=== PATIENT | female | born 1970 | race Caucasian/White ===

== ENCOUNTER 2017-10-20 12:30 | Inpatient (IN) | payer OTHER, BC ==
[2017-10-20 13:38] LABS: Hemoglobin 14.8 g/dL (12.0-16.0); Mean Corpuscular HGB CONC 34.9 g/dL (32.0-36.0); Mean Corpuscular Hemoglobin 31.7 pg (27.0-31.0); Mean Corpuscular Volume 90.7 fl (81.0-99.0); Mean Platelet Volume 7.2 fL (7.4-10.4); Platelet Count 440 thou/uL (130-400); RBC Distribution Width 11.7 % (11.5-14.5); Red Blood Cell (RBC) Count 4.67 mill/uL (4.20-5.40); White Blood Cell (WBC) Count 16.7 thou/uL (4.8-10.8)
[2017-10-20 13:59] LABS: Band 29 % (5-11); Large Platelets SLIGHT; Lymphocytes 8 % (21-51); MDiff Complete? YES; Monocytes 17 % (0-10); Neutrophil 41 % (42-75); PLT Morphology Comment Appears Increased; RBC Morphology Normal; Reactive Lymphocytes 3 % (0-10)
[2017-10-20 14:04] LABS: ALT (SGPT) 33 U/L (8-55); AST (SGOT) 42 U/L (5-34); Albumin 4.5 g/dL (3.5-5.0); Alkaline Phosphatase 108 U/L (40-150); Anion Gap 14 mmol/L (10-20); BUN (Urea Nitrogen) 16 mg/dL (7.0-18.7); Bilirubin, Total 0.6 mg/dL (0.2-1.2); Calc. Creatinine Clearance 0 mL/min (70-130); Calcium 9.5 mg/dL (7.8-10.44); Carbon Dioxide 26 mmol/L (22-29); Chloride 100 mmol/L (98-107); Estimated GFR-MDRD 80; Globulin 3.1 g/dL (2.4-3.5); Glucose 101 mg/dL (70-105); Potassium 3.9 mmol/L (3.5-5.1); Protein, Total 7.6 g/dL (6.0-8.3); Sodium 136 mmol/L (136-145)
--- NOTE | 2017-10-20 14:06 | RAD ---
PORTABLE CHEST 1 VIEW: Date: 10/20/17 Time: 1351 hours HISTORY: Cough. FINDINGS: Comparison made with exam of 09/15/16. The heart size is normal. Lungs are well expanded without focal areas of consolidation, pneumothorax, alvina pulmonary edema, or pleural effusions. Surgical clips in the chest and axilla are again seen. IMPRESSION: No radiographic evidence of acute cardiopulmonary process. POS: [facility]
[2017-10-20] MEDS ORDERED: Ibuprofen 800 MG TAB ONE (14:28)
[2017-10-20] MEDS ORDERED: Piperacillin/Tazobactam 4.5 GM in Sodium Chloride 0.9% 100 ML IVPB SCH (15:15)
[2017-10-20 15:28] LABS: Bilirubin Negative (Negative); Blood, Urine Negative (Negative); Clarity CLEAR (Clear); Glucose, Urine (Dipstick) Negative (Negative); Leukocyte Negative (Negative); Nitrite Negative (Negative); Protein, Urine (Dipstick) Negative (Neg-Trace); Specific Gravity, Urine 1.014 (1.002-1.036); Urobilinogen 0.2 mg/dL (0.2-1.0)
[2017-10-20] MEDS ORDERED: Acetaminophen 500 MG TAB ONE ×2 (16:05→16:17)
[2017-10-20] MEDS ORDERED: Acetaminophen 325 MG TAB PO PRN (16:43)
[2017-10-20] MEDS ORDERED: Ondansetron ODT 4 MG TAB PO PRN (16:43)
[2017-10-20] MEDS ORDERED: cefTRIAXone\\ROCEPHIN 1 GM in Sodium Chloride 0.9% 100 ML IVPB SCH (17:00)
[2017-10-20] MEDS ORDERED: Albuterol Sulfate 2.5 mg/3 ml Neb NEB PRN (17:24)
[2017-10-20] MEDS ORDERED: Lorazepam 2 MG/ML VIAL ONE ×2 (17:54→18:31)
[2017-10-20] MEDS ORDERED: cefTRIAXone\\ROCEPHIN 1 GM, Syringe 0.4 ML in Sterile Water 9.6 ML SLOW IVP SCH (18:00)
--- NOTE | 2017-10-20 20:10 | HP-2 ---
CODE STATUS: FULL. PRIMARY CARE PHYSICIAN: Johnathan Flannery M.D. ATTENDING PHYSICIAN: Jannette Gomez M.D. RESIDENT: Alexandria Trinidad DO HISTORIAN: The patient. CHIEF COMPLAINT: Flue-like illness. HISTORY OF PRESENT ILLNESS: Patient is a 47-year-old female who presented with fever, body aches, he adache, cough, and nausea who began to feel ill yesterday morning. She went to an urgent care center who diagnosed her with the flu; however, they did not have flu swabs. They placed her on Tamiflu. The patient has significant medical history of asplenia at age 5 and is on prophylactic penicillin da [place]. At home, she had a fever of 102.5. She also reports history of septic shock due to strep and w as hospitalized in the ICU, followed by hospital-acquired pneumonia. In the ER, patient was given va ncomycin 1 gram, Zosyn 4.5 grams IV and Motrin 800mg and 1 liter normal saline. PAST MEDICAL HISTORY: 1. Left breast cancer, status post mastectomy in 2010. 2. Asthma. 3. Endometriosis. 4. History of septic shock. 5. Anxiety. 6. Depression. 7. Hereditary spherocytosis, status post splenectomy. 8. Insomnia. PAST SURGICAL HISTORY: 1. Removal of cervical tumor. 2. Oophorectomy. 3. Double mastectomy. 4. x1. 5. Sinus surgery x5. 6. Appendectomy. 7. Splenectomy. 8. Thyroidectomy. ALLERGIES: 1. DARVOCET-N 100 causing itching. 2. NAPSYLATE. 3. PROPOXYPHENE. MEDICATIONS: 1. Ambien 10 mg daily. 2. Aspirin 81 mg. 3. Duloxetine 60 mg daily. 4. Gabapentin 800 mg daily. 5. Meloxicam 15 mg daily. 6. Seroquel 1200 mg at bedtime. 7. Singulair 10 mg daily. 8. Penicillin VK 500 mg b.i.d. 9. Melatonin 20 mg at bedtime. 10. Sudafed 30 mg b.i.d. p.r.n. FAMILY HISTORY: Father with hereditary spherocytosis. SOCIAL HISTORY: Denies tobacco, alcohol, or drug use. 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 REVIEW OF SYSTEMS: Twelve point review of systems was performed and found to be positive for those m entioned in the HPI along with generalized weakness. PHYSICAL EXAMINATION: VITAL SIGNS: Blood pressure 131/88, pulse 128, respiratory rate 20, T-max 102.8, pulse ox 98% on ignacia m air, current weight 73.48 kilograms. GENERAL: The patient is alert and oriented x4, in no acute distress. She is well-developed, well-no urished, and appropriately interactive. EYES: PERRLA, EOMI. ENT: Oropharynx with erythema, no exudate. NECK: Supple, without lymphadenopathy, no thyromegaly. CARDIOVASCULAR: Tachycardia. No murmurs noted. Radial pulses 2+, pedal pulses 2+. RESPIRATORY: Normal effort, no retractions, clear to auscultation bilaterally. SKIN: Warm and dry. ABDOMEN: Soft and nontender. Bowel sounds positive in all 4 quadrants. EXTREMITIES: No clubbing, cyanosis or edema. MUSCULOSKELETAL: Structure within normal limits. Tone within normal limits. NEUROLOGIC: No focal deficits. PSYCHIATRIC: Appropriate. LABORATORY DATA: CBC: White blood cell count 16.7, hemoglobin 14.8, hematocrit 42.4, platelets 440, 29% bands, 41% neutrophils. CMP: Sodium 136, potassium 3.9, chloride 100, CO2 of 26, BUN 16, creat inine 0.77, glucose 101, GFR greater than 90, calcium 9.5, total protein 7.6, albumin 4.5, AST 42, AL T 33, alkaline phosphatase 108, total bilirubin 0.6. Chest x-ray with no acute findings. ASSESSMENT AND PLAN: 1. Fever in asplenic patient, secondary to influenza versus upper respiratory infection. We are adm itting to oncology with a history of insidious septic shock in the past secondary to strep and status post splenectomy at age 5, on daily penicillin. Blood and urine cultures are pending. We will give vancomycin and Rocephin until blood culture is negative. Patient is status post 1 liter normal sali ne. We will continue maintenance fluids. I have obtained a viral panel that is pending. White bloo d cell count 16.7 with 29% bands. We will repeat CBC in the morning and monitor white blood cell cou nt. We will continue Tamiflu 75 mg b.i.d. x5 days. Chest x-ray was negative. Lactic acid is pendin g. 2. Hereditary spherocytosis, status post splenectomy, continue penicillin VK 500 mg b.i.d. We will m onitor closely for signs of worsening infection. 3. History of breast cancer status post bilateral mastectomy in remission. 4. Anxiety and depression. We will continue home medications. 5. Insomnia. We will continue home Ambien and melatonin. 6. Status post thyroidectomy, not currently on medications. We will check a TSH. DISPOSITION AND LENGTH OF HOSPITAL STAY: 1-2 days. Symptomatic medications will be provided. History and physical exam as well as management was discussed with Dr. Reuben Hernandez.
[2017-10-20] MEDS: Oseltamivir 75 MG CAP PO SCH (21:32)
[2017-10-20] MEDS: Penicillin V Potassium 250 MG TAB PO SCH (21:33)
[2017-10-20] MEDS: Melatonin 3 MG TAB PO PRN (21:46)
[2017-10-20] MEDS: Zolpidem Tartrate 5 MG TAB PO PRN (21:47)
[2017-10-20] MEDS: cefTRIAXone\\ROCEPHIN 1 GM, Syringe 0.4 ML in Sterile Water 9.6 ML SLOW IVP SCH (21:47)
[2017-10-20] MEDS: Sodium Chloride 0.9% 1,000 ML IV SCH (23:13)
[2017-10-21] MEDS: Vancomycin HCl 1 GM in Premix Bag 1 BAG IVPB SCH ×2 (03:19→16:18)
[2017-10-21] MEDS: Sodium Chloride 0.9% 1,000 ML IV SCH ×3 (03:40→16:22)
[2017-10-21 05:22] VITALS: BMI 28.3
[2017-10-21 06:16] LABS: Band 19 % (5-11); Hemoglobin 12.6 g/dL (12.0-16.0); Lymphocytes 21 % (21-51); MDiff Complete? YES; Mean Corpuscular HGB CONC 35.2 g/dL (32.0-36.0); Mean Corpuscular Hemoglobin 32.1 pg (27.0-31.0); Mean Corpuscular Volume 91.3 fl (81.0-99.0); Mean Platelet Volume 7.5 fL (7.4-10.4); Monocytes 23 % (0-10); Neutrophil 37 % (42-75); PLT Morphology Comment Appears Adequate; Platelet Count 380 thou/uL (130-400); RBC Distribution Width 11.9 % (11.5-14.5); Red Blood Cell (RBC) Count 3.94 mill/uL (4.20-5.40); White Blood Cell (WBC) Count 9.2 thou/uL (4.8-10.8)
[2017-10-21] MEDS ORDERED: Cyclobenzaprine 10 MG TAB PO PRN (09:06)
[2017-10-21] MEDS ORDERED: guaiFENesin ER 600 MG TAB PO PRN (09:06)
[2017-10-21] MEDS ORDERED: Fioricet 325/50/40 mg Tablet PO PRN (09:06)
--- NOTE | 2017-10-21 09:11 | PDOC.FM ---
- Subjective Subjective: Patient is lying comfortably in bed this morning. Reports poor sleep overnight , but otherwise feels better. No fevers overnight and no acute events overnight. - Objective MAR Reviewed: Yes Vital Signs & Weight: Vital Signs (12 hours) Temp Pulse Resp BP Pulse Ox 10/21/17 08:45 98.5 F 113 H 18 113/77 95 10/21/17 04:00 98.6 F 100 16 104/68 95 10/21/17 00:00 98.4 F 101 H 16 101/65 94 L Weight Weight 79.56 kg I&O: 10/20/17 10/21/17 10/22/17 06:59 06:59 06:59 Intake Total 1440 Balance 1440 Result Diagrams: 10/21/17 04:37 10/20/17 13:20 <Alexandria Trinidad - Last Filed: 10/21/17 11:02> - Objective Vital Signs & Weight: Vital Signs (12 hours) Temp Pulse Resp BP Pulse Ox 10/21/17 08:45 98.5 F 113 H 18 113/77 95 10/21/17 04:00 98.6 F 100 16 104/68 95 10/21/17 00:00 98.4 F 101 H 16 101/65 94 L Weight Weight 79.56 kg I&O: 10/20/17 10/21/17 10/22/17 06:59 06:59 06:59 Intake Total 1440 Balance 1440 Result Diagrams: 10/21/17 04:37 10/20/17 13:20 <Reuben Hernandez - Last Filed: 10/21/17 11:59> Phys Exam - Physical Examination Constitutional: NAD HEENT: PERRLA, moist MMs erythematous oropharynx, no exudates Neck: no nodes Respiratory: no wheezing, no rales, no rhonchi, clear to auscultation bilateral Cardiovascular: RRR, no significant murmur Gastrointestinal: soft, non-tender Musculoskeletal: no edema, pulses present Neurological: non-focal, moves all 4 limbs Psychiatric: normal affect, A&O x 3 Skin: cap refill <2 seconds <Alexandria Trinidad - Last Filed: 10/21/17 11:02> Dx/Plan (1) Fever of unknown origin Status: Acute (2) Influenza-like illness Code(s): R69 - ILLNESS, UNSPECIFIED Status: Acute (3) Hx of breast cancer Code(s): Z85.3 - PERSONAL HISTORY OF MALIGNANT NEOPLASM OF BREAST Status: Acute (4) Hereditary spherocytosis Code(s): D58.0 - HEREDITARY SPHEROCYTOSIS Status: Acute (5) Acquired asplenia Code(s): Z90.81 - ACQUIRED ABSENCE OF SPLEEN Status: Chronic (6) Anxiety disorder Code(s): F41.9 - ANXIETY DISORDER, UNSPECIFIED Status: Chronic (7) Major depressive disorder Code(s): F32.9 - MAJOR DEPRESSIVE DISORDER, SINGLE EPISODE, UNSPECIFIED Status : Chronic - Plan Plan: Fever of Unknown Origin in Asplenic Patient - Likely viral with recent sx, blood cultures with no growth to date - continue Vanc and Rocephin until blood cultures negative - respiratory viral panel negative - d/c Tamiflu - afebrile overngiht Likely Viral URI - respiratory viral panel negative - symptomatic treatment Hereditary Spherocytosis s/p Splenectomy - treat with abx until cultures negative as above Anxiety - home meds Depression - home meds Insomnia - home meds Breast Cancer s/p mastectomy <Alexandria Trinidad - Last Filed: 10/21/17 11:02> Attending Addendum - Attending Addendum I personally evaluated the patient and discussed the management with Dr. Trinidad. I agree with the History, Examination, Assessment and Plan documented above with any addition or exceptions noted below. Feeling better. Afeb overnight. Viral Panel normal. BBS CTA. Continue IV abx' s til Cx's negative. Sx's treated for viral illness. <Reuben Hernandez - Last Filed: 10/21/17 11:59>
[2017-10-21] MEDS ORDERED: Melatonin 3 MG TAB PO PRN (09:25)
[2017-10-21] MEDS ORDERED: Lactinex Tablet PO SCH (10:00)
[2017-10-21] MEDS ORDERED: DULoxetine 60 MG CAP PO SCH (10:00)
[2017-10-21] MEDS ORDERED: Fish Oil 1,000 MG CAP PO SCH (10:00)
[2017-10-21] MEDS ORDERED: Multivit, Therapeutic 1 TAB PO SCH (10:00)
[2017-10-21] MEDS ORDERED: Aspirin 81 mg Enteric Coated Tablet PO SCH (10:00)
[2017-10-21] MEDS: Enoxaparin Sodium 40 MG/0.4 ML SYRINGE SC SCH (10:18)
[2017-10-21] MEDS: Oseltamivir 75 MG CAP PO SCH (11:52)
[2017-10-21] MEDS: Penicillin V Potassium 250 MG TAB PO SCH ×2 (12:26→20:24)
[2017-10-21] MEDS ORDERED: Naproxen 500 MG TAB PO PRN (15:00)
[2017-10-21] MEDS: Gabapentin 400 MG CAP PO SCH (20:24)
[2017-10-21] MEDS: Montelukast Sodium 10 mg Tablet PO SCH (20:33)
[2017-10-21] MEDS: Zolpidem Tartrate 5 MG TAB PO PRN (20:41)
[2017-10-21] MEDS: Melatonin 3 MG TAB PO PRN (21:00)
[2017-10-21] MEDS: Meloxicam 15 MG TAB PO SCH (21:53)
[2017-10-21] MEDS: cefTRIAXone\\ROCEPHIN 1 GM, Syringe 0.4 ML in Sterile Water 9.6 ML SLOW IVP SCH (22:00)
[2017-10-22] MEDS: cefTRIAXone\\ROCEPHIN 1 GM, Syringe 0.4 ML in Sterile Water 9.6 ML SLOW IVP SCH (01:03)
[2017-10-22 02:30] LABS: Vancomycin, Trough 8.4 ug/mL
[2017-10-22] MEDS: Sodium Chloride 0.9% 1,000 ML IV SCH ×2 (02:54→15:43)
[2017-10-22] MEDS: Vancomycin HCl 1 GM in Premix Bag 1 BAG IVPB SCH ×2 (02:55→15:41)
[2017-10-22 03:35] LABS: Eosinophils 6 % (0-10); Hemoglobin 13.8 g/dL (12.0-16.0); Lymphocytes 47 % (21-51); MDiff Complete? YES; Mean Corpuscular HGB CONC 35.2 g/dL (32.0-36.0); Mean Corpuscular Volume 90.9 fl (81.0-99.0); Mean Platelet Volume 7.7 fL (7.4-10.4); Monocytes 15 % (0-10); Neutrophil 18 % (42-75); PLT Morphology Comment Appears Adequate; Platelet Count 407 thou/uL (130-400); RBC Distribution Width 11.7 % (11.5-14.5); Reactive Lymphocytes 14 % (0-10); Red Blood Cell (RBC) Count 4.32 mill/uL (4.20-5.40); White Blood Cell (WBC) Count 5.3 thou/uL (4.8-10.8)
--- NOTE | 2017-10-22 07:53 | PDOC.FM ---
- Subjective Subjective: Patient resting comfortably this morning. Reports feeling much better today but has continued cough. No acute events overngiht. - Objective MAR Reviewed: Yes Vital Signs & Weight: Vital Signs (12 hours) Temp Pulse Resp BP BP Pulse Ox 10/22/17 00:50 99.1 F 106 H 16 94/62 92 L 10/21/17 20:00 99.3 F 100 20 113/76 96 Weight Weight 79.56 kg I&O: 10/20/17 10/21/17 10/22/17 06:59 06:59 06:59 Intake Total 1440 Balance 1440 Result Diagrams: 10/22/17 01:55 10/20/17 13:20 <Alexandria Trinidad - Last Filed: 10/22/17 08:00> - Objective Vital Signs & Weight: Vital Signs (12 hours) Temp Pulse Resp BP Pulse Ox 10/22/17 00:50 99.1 F 106 H 16 94/62 92 L Weight Weight 79.56 kg I&O: 10/21/17 10/22/17 10/23/17 06:59 06:59 06:59 Intake Total 1440 Balance 1440 Result Diagrams: 10/22/17 01:55 10/20/17 13:20 <Reuben Hernandez - Last Filed: 10/22/17 08:54> Phys Exam - Physical Examination Constitutional: NAD HEENT: PERRLA, moist MMs Neck: no nodes Respiratory: no wheezing, no rales, clear to auscultation bilateral Cardiovascular: RRR, no significant murmur Gastrointestinal: soft, non-tender Musculoskeletal: no edema, pulses present <Alexandria Trinidad - Last Filed: 10/22/17 08:00> Dx/Plan (1) Fever of unknown origin Status: Acute (2) Influenza-like illness Code(s): R69 - ILLNESS, UNSPECIFIED Status: Acute (3) Hx of breast cancer Code(s): Z85.3 - PERSONAL HISTORY OF MALIGNANT NEOPLASM OF BREAST Status: Acute (4) Hereditary spherocytosis Code(s): D58.0 - HEREDITARY SPHEROCYTOSIS Status: Acute (5) Acquired asplenia Code(s): Z90.81 - ACQUIRED ABSENCE OF SPLEEN Status: Chronic (6) Anxiety disorder Code(s): F41.9 - ANXIETY DISORDER, UNSPECIFIED Status: Chronic (7) Major depressive disorder Code(s): F32.9 - MAJOR DEPRESSIVE DISORDER, SINGLE EPISODE, UNSPECIFIED Status : Chronic - Plan Plan: Fever of Unknown Origin in Asplenic Patient - Likely viral with recent sx, blood cultures with no growth to date - continue Vanc and Rocephin until blood cultures negative, will be 48h today. - respiratory viral panel negative - d/c Tamiflu - afebrile overnight Likely Viral URI - respiratory viral panel negative - symptomatic treatment Hereditary Spherocytosis s/p Splenectomy - treat with abx until cultures negative as above Anxiety - home meds Depression - home meds Insomnia - home meds Breast Cancer s/p mastectomy Dispo: Likely d/c today if blood cultures negative. <Alexandria Trinidad - Last Filed: 10/22/17 08:00> Attending Addendum - Attending Addendum I personally evaluated the patient and discussed the management with Dr. Trinidad I agree with the History, Examination, Assessment and Plan documented above with any addition or exceptions noted below. Afebrile overnight. Final cultures pending result today. If negative, antibiotics can be stopped and patient can be discharged home with close follow up. <Reuben Hernandez - Last Filed: 10/22/17 08:54>
[2017-10-22] MEDS ORDERED: Glucosam/Chondr-Msm1/D3/C/Mang PO SCH (09:00)
[2017-10-22] MEDS ORDERED: Prevnar 13-Val Conj/PF 0.5 ML SYRINGE IM ONE (09:00)
[2017-10-22] MEDS: Fish Oil 1,000 MG CAP PO SCH (09:53)
[2017-10-22] MEDS: Aspirin 81 mg Enteric Coated Tablet PO SCH (09:54)
[2017-10-22] MEDS: Lactinex Tablet PO SCH (09:54)
[2017-10-22] MEDS: Multivit, Therapeutic 1 TAB PO SCH (09:54)
[2017-10-22] MEDS: Enoxaparin Sodium 40 MG/0.4 ML SYRINGE SC SCH ×2 (09:55→15:41)
[2017-10-22] MEDS: DULoxetine 60 MG CAP PO SCH (09:55)
[2017-10-22] MEDS: Penicillin V Potassium 250 MG TAB PO SCH ×2 (09:55→20:33)
[2017-10-22] MEDS: Meloxicam 15 MG TAB PO SCH (20:32)
[2017-10-22] MEDS: Montelukast Sodium 10 mg Tablet PO SCH (20:32)
[2017-10-22] MEDS: Gabapentin 400 MG CAP PO SCH (20:32)
[2017-10-22] MEDS: Zolpidem Tartrate 5 MG TAB PO PRN (20:34)
[2017-10-23 05:25] LABS: Band 1 % (5-11); Eosinophils 2 % (0-10); Hemoglobin 14.3 g/dL (12.0-16.0); Lymphocytes 31 % (21-51); MDiff Complete? YES; Mean Corpuscular HGB CONC 34.5 g/dL (32.0-36.0); Mean Corpuscular Hemoglobin 31.1 pg (27.0-31.0); Mean Corpuscular Volume 90.2 fl (81.0-99.0); Mean Platelet Volume 7.5 fL (7.4-10.4); Monocytes 10 % (0-10); Neutrophil 56 % (42-75); PLT Morphology Comment Appears Increased; Platelet Count 416 thou/uL (130-400); RBC Distribution Width 11.5 % (11.5-14.5); White Blood Cell (WBC) Count 10.2 thou/uL (4.8-10.8)
--- NOTE | 2017-10-23 06:49 | PDOC.FM ---
- Subjective Subjective: No acute events overnight. No fever since yesterday ~1400. Pt without complaints this am. - Objective MAR Reviewed: Yes Vital Signs & Weight: Vital Signs (12 hours) Temp Pulse Resp BP Pulse Ox 10/23/17 04:00 98.5 F 10/23/17 00:11 98.6 F 10/22/17 20:00 100.2 F H 111 H 16 132/88 98 Weight Weight 79.56 kg I&O: 10/21/17 10/22/17 10/23/17 06:59 06:59 06:59 Intake Total 1440 Balance 1440 Result Diagrams: 10/23/17 04:39 10/20/17 13:20 <Jeanette Cortez - Last Filed: 10/23/17 09:07> - Objective Vital Signs & Weight: Vital Signs (12 hours) Temp Pulse Resp BP Pulse Ox 10/23/17 08:00 98.3 F 100 20 91/65 93 L 10/23/17 04:00 98.5 F Weight Weight 79.56 kg Result Diagrams: 10/23/17 04:39 10/20/17 13:20 <Hesham Villegas - Last Filed: 10/23/17 12:44> Phys Exam - Physical Examination Constitutional: NAD HEENT: PERRLA, moist MMs Respiratory: no wheezing, no rales Cardiovascular: RRR, no significant murmur Gastrointestinal: soft, non-tender, no distention, positive bowel sounds Musculoskeletal: no edema Neurological: non-focal Psychiatric: normal affect, A&O x 3 Skin: no rash <Jeanette Cortez - Last Filed: 10/23/17 09:07> Dx/Plan (1) Fever of unknown origin Status: Acute (2) Hereditary spherocytosis Code(s): D58.0 - HEREDITARY SPHEROCYTOSIS Status: Acute (3) Acquired asplenia Code(s): Z90.81 - ACQUIRED ABSENCE OF SPLEEN Status: Chronic (4) Anxiety disorder Code(s): F41.9 - ANXIETY DISORDER, UNSPECIFIED Status: Chronic (5) Major depressive disorder Code(s): F32.9 - MAJOR DEPRESSIVE DISORDER, SINGLE EPISODE, UNSPECIFIED Status : Chronic - Plan Plan: 1.)Fever of Unknown Origin in Asplenic Patient -Fevered yesterday @ 1400 -Consider discharge this afternoon if afebrile for 24 hours -Dc abx at that time - Likely viral etiology with recent sx, blood cultures with no growth to date - respiratory viral panel negative - d/c Tamiflu 2.)Likely Viral URI - respiratory viral panel negative - symptomatic treatment 3.)Hereditary Spherocytosis s/p Splenectomy - treat with abx until cultures negative as above 4.)Anxiety - home meds 5.)Depression - home meds 6.)Insomnia - home meds 7.)Breast Cancer s/p mastectomy Dispo: Likely d/c today <Jeanette Cortez - Last Filed: 10/23/17 09:07> Attending Addendum - Attending Addendum I personally evaluated the patient and discussed the management with Dr. Sri Brown. I agree with the History, Examination, Assessment and Plan documented above with any addition or exceptions noted below. Patient reports feeling significantly better this morning. No evidence of serious bacterial infection, and blood cultures have been negative. Her viral panel was also negative, but symptoms point to most likely URTI as cause of fevers. She has been afebrile for near 24 hours. We will be sending her home on Cefdinir to cover for incapsulated organisms when she is discharged. Checking PCT to ensure low risk for bacterial sepsis, and likely discharge later this afternoon. <Hesham Villegas - Last Filed: 10/23/17 12:44>
[2017-10-23] MEDS: Multivit, Therapeutic 1 TAB PO SCH (08:49)
[2017-10-23] MEDS: Lactinex Tablet PO SCH (08:49)
[2017-10-23] MEDS: Penicillin V Potassium 250 MG TAB PO SCH (08:49)
[2017-10-23] MEDS: Aspirin 81 mg Enteric Coated Tablet PO SCH (08:49)
[2017-10-23] MEDS: DULoxetine 60 MG CAP PO SCH (08:49)
[2017-10-23] MEDS: Fish Oil 1,000 MG CAP PO SCH (08:49)
[2017-10-23] MEDS: Enoxaparin Sodium 40 MG/0.4 ML SYRINGE SC SCH (08:50)
[2017-10-23 14:47] VITALS: BP 113/77; TEMP 98.9
[2017-10-23] MEDS ORDERED: Cefdinir 300 MG CAP PO SCH (21:00)
== END 2017-10-23 15:38 | disposition home or self-care (01) | DRG 872 ==
LOC: ERS 12:30 → T4-B 15:05
PROVIDERS: ADMIT Family Medicine; ATTEND Family Medicine
DX: A41.9 Sepsis, unspecified organism (principal); D58.0 Hereditary spherocytosis; N39.0 Urinary tract infection, site not specified; J11.1 Influenza due to unidentified influenza virus with other respiratory manifestations; Z85.3 Personal history of malignant neoplasm of breast; J45.909 Unspecified asthma, uncomplicated; N80.9 Endometriosis, unspecified; F41.8 Other specified anxiety disorders; Z90.81 Acquired absence of spleen; E89.0 Postprocedural hypothyroidism
CPT/HCPCS: 36415; 71045; 80053; 80202; 81003; 83605; 84145; 84443; 85007; 85025; 85027; 87040; 87077; 87086; 87186; 87633; 93005; 94760; 96361; 96365; 96366; 96375; 96376; A4216; J0696; J1650; J2060; J2543; J3370; J7050

== ENCOUNTER 2018-10-28 12:14 | Inpatient (IN) | payer OTHER, BC ==
[2018-10-28] MEDS ORDERED: cefTRIAXone\\ROCEPHIN 2 GM VIAL ONE ×2 (12:53)
[2018-10-28] MEDS ORDERED: Azithromycin 500 MG VIAL ONE (12:53)
[2018-10-28 12:54] LABS: #Basophils 0.1 thou/uL (0.0-0.2); #Eosinphils 0.1 thou/uL (0.0-0.7); #Lymphocytes 2.3 thou/uL (1.20-3.40); #Neutrophils 10.6 thou/uL (1.40-6.50); %Basophils 0.5 % (0.0-1.0); %Eosinophils 0.4 % (0.0-10.0); %Lymphocytes 15.2 % (21.0-51.0); %Monocytes 13.5 % (0.0-10.0); %Neutrophils 70.4 % (42.0-75.0); Hemoglobin 14.3 g/dL (12.0-16.0); Mean Corpuscular HGB CONC 34.6 g/dL (32.0-36.0); Mean Corpuscular Hemoglobin 30.6 pg (27.0-31.0); Mean Corpuscular Volume 88.3 fL (78.0-98.0); Mean Platelet Volume 7.4 fL (7.4-10.4); Platelet Count 438 thou/uL (130-400); RBC Distribution Width 11.9 % (11.5-14.5); Red Blood Cell (RBC) Count 4.68 mill/uL (4.20-5.40)
[2018-10-28 13:14] LABS: ALT (SGPT) 28 U/L (8-55); AST (SGOT) 35 U/L (5-34); Albumin 4.4 g/dL (3.5-5.0); Alkaline Phosphatase 130 U/L (40-150); Anion Gap 16 mmol/L (10-20); BUN (Urea Nitrogen) 24 mg/dL (7.0-18.7); Bilirubin, Total 0.3 mg/dL (0.2-1.2); Calc. Creatinine Clearance 0 mL/min (70-130); Calcium 9.5 mg/dL (7.8-10.44); Carbon Dioxide 21 mmol/L (22-29); Chloride 103 mmol/L (98-107); Estimated GFR-MDRD 76; Globulin 3.2 g/dL (2.4-3.5); Glucose 108 mg/dL (70-105); Potassium 4.2 mmol/L (3.5-5.1); Protein, Total 7.6 g/dL (6.0-8.3); Sodium 136 mmol/L (136-145)
--- NOTE | 2018-10-28 13:40 | RAD ---
FRONTAL VIEW CHEST: Date: 10/28/18 COMPARISON: 10/20/17. FINDINGS: Lungs are clear. Cardiac silhouette is prominent, stable. Numerous metallic clips overlie the chest b ilaterally. Chest otherwise similar in appearance. IMPRESSION: Stable chest. POS: [facility]
--- NOTE | 2018-10-28 13:49 | PDOC.FPRHP ---
- History of Present Illness Chief Complaint: fever History of Present Illness: 48 yo F with hx of splenectomy at age 5 for hereditary spherocytosis presents to ED for cough and fever. Fever started 3 days ago with associated cough, non productive. Yesterday, went to ED in [place] and but was sent home since WBC of 7. This AM had measured home temp of 101F and came to ED. She denies recent travel, night sweats, chills. 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 Denies dysuria, sore throat, rash, neck stiffness, headaches. Of note, she was hospitalized last year for sepsis 2/2 strep pharyngitis requiring ICU admission. Since then she has been on daily PCN ppx. - Allergies/Adverse Reactions Allergies Allergy/AdvReac Type Severity Reaction Status Date / Time propoxyphene napsylate Allergy Mild Rash Verified 06/20/15 21:49 [From [facility]] - Home Medications Medication Instructions Recorded Confirmed Type DULoxetine [Cymbalta] 60 mg PO DAILY 12/22/14 10/28/18 History Gabapentin 800 mg PO DAILY 12/22/14 10/28/18 History Meloxicam 15 mg PO DAILY 12/22/14 10/28/18 History Montelukast Sodium [Singulair] 10 mg PO HS 12/22/14 10/28/18 History Zolpidem Tartrate [Ambien] 10 mg PO HS 12/22/14 10/28/18 History Aspirin [Low Dose Aspirin EC] 1 tab PO DAILY 06/20/15 10/28/18 History Lactobacillus Acidophilus 1 capsule PO QAM 06/20/15 10/28/18 History [Probiotic] Multivitamin [Multivitamins] 1 cap PO QAM-WM 06/20/15 10/28/18 History Naproxen Sodium [Aleve] 660 mg PO BID PRN 06/20/15 10/28/18 History [place]-3 Fatty Acids/Fish Oil 1 cap PO QAM-WM 06/20/15 10/28/18 History [[place] 3 Fish Oil Softgel] Butalbital/Acetaminophen/Caffe 1 - 2 tab PO Q6HR PRN #0 tab 06/26/15 10/28/18 Rx [Fioricet] Cyclobenzaprine [Flexeril] 10 mg PO TID PRN #0 tab 06/26/15 10/28/18 Rx Glucosam/Chondr-Msm1/D3/C/[place] 1 each PO DAILY 07/19/15 10/28/18 History [Glucosamine Chondroitin Complex] Melatonin 20 mg PO HS 07/19/15 10/28/18 History guaiFENesin ER [Mucinex] 1,200 mg PO BID PRN 07/19/15 10/28/18 History Penicillin V Potassium 1 tab PO BID 09/16/16 10/28/18 History QUEtiapine Fumarate [SEROquel] 1,200 mg PO HS 09/16/16 10/28/18 History busPIRone HCl [Buspirone HCl] 15 mg PO QID PRN 10/28/18 10/28/18 History - History PMHx: Hereditary spherocytosis, breast cancer s/p mastectomy PSHx: Splenectomy, b/l mastectomy, lap appy, lap corey, b/l oophorectomy. thyroidectomy, sinus surgeries FHx:non contributory Social: denies tobacco, social drinking, denies drug use - Review of Systems General: reports: fever/chills, weight/appetite/sleep changes Eyes: denies: eye pain, vision changes ENT: denies: nasal congestion, rhinorrhea Respiratory: reports: cough, congestion. denies: shortness of breath, exercise intolerance Cardiovascular: denies: chest pain, palpitation, edema, orthopnea Gastrointestinal: denies: nausea, vomiting, diarrhea, constipation, abdominal pain, GI bleeding Genitourinary: denies: incontinence, dysuria, polyuria Skin: denies: rashes Musculoskeletal: denies: pain, tenderness Neurological: reports: syncope, weakness. denies: numbness Psychological: denies: anxiety, depression - Vital signs BP: [] HR: [] RR: [] Tmax: [] Pox: []% on [] Wt: [] - Physical Exam Constitutional: NAD, awake, alert and oriented HEENT: normocephalic and atraumatic, PERRLA, EOMI, conjunctiva clear, grossly normal vision, normal nasal mucosa, MMM Neck: supple, FROM, no LAD, no JVD Chest: no-tender to palpation, no lesions Heart: RRR, normal S1/S2 Lungs: CTAB, no respiratory distress, good air movement Abdomen: soft, non-tender -Abdomen: mildly distended, no peritoneal signs Musculoskeletal: normal structure, normal tone, ROM grossly normal Neurological: no focal deficit, CN II-XII intact, normal sensation Skin: no rash/lesions, good turgor Heme/Lymphatic: no unusual bruising or bleeding FMR H&P: Results - Labs Result Diagrams: 10/28/18 12:29 10/28/18 12:29 Lab results: WBC 15.0 thou/uL (4.8-10.8) H 10/28/18 12:29 Hgb 14.3 g/dL (12.0-16.0) 10/28/18 12:29 Hct 41.3 % (36.0-47.0) 10/28/18 12:29 MCV 88.3 fL (78.0-98.0) 10/28/18 12:29 Plt Count 438 thou/uL (130-400) H 10/28/18 12:29 Neutrophils % 70.4 % (42.0-75.0) 10/28/18 12:29 Sodium 136 mmol/L (136-145) 10/28/18 12:29 Potassium 4.2 mmol/L (3.5-5.1) 10/28/18 12:29 Chloride 103 mmol/L (98-107) 10/28/18 12:29 Carbon Dioxide 21 mmol/L (22-29) L 10/28/18 12:29 BUN 24 mg/dL (7.0-18.7) H 10/28/18 12:29 Creatinine 0.80 mg/dL (0.6-1.1) 10/28/18 12:29 Glucose 108 mg/dL (70-105) H 10/28/18 12:29 Lactic Acid 1.1 mmol/L (0.5-2.2) 10/28/18 12:29 Calcium 9.5 mg/dL (7.8-10.44) 10/28/18 12:29 Total Bilirubin 0.3 mg/dL (0.2-1.2) 10/28/18 12:29 AST 35 U/L (5-34) H 10/28/18 12:29 ALT 28 U/L (8-55) 10/28/18 12:29 Alkaline Phosphatase 130 U/L (40-150) 10/28/18 12:29 Serum Total Protein 7.6 g/dL (6.0-8.3) 10/28/18 12:29 Albumin 4.4 g/dL (3.5-5.0) 10/28/18 12:29 - Radiology Interpretation Chest x-ray Status: report reviewed by me Additional comment: negative for acute processes FMR H&P: A/P - Problem List (1) Fever of unknown origin Current Visit: No Status: Acute (2) Hx of breast cancer Current Visit: No Status: Acute Code(s): Z85.3 - PERSONAL HISTORY OF MALIGNANT NEOPLASM OF BREAST (3) Acquired asplenia Current Visit: No Status: Chronic Code(s): Z90.81 - ACQUIRED ABSENCE OF SPLEEN - Plan 48 yo F with acquired splenectomy 2/2 hereditary spherocytosis admitted for sepsis 2/2 likely viral URI Sepsis 2/2 likely viral URI -flu negative, CXR negative -low concern for meningitis -Meets SIRS criteria with tachycardia fever of 100.4 and WBC 15 with URI sxs -s/p rocephin & azithromycin in ED. Will start Vanc and rocephin to cover for encapsulated organisms. Will likely need at least 72 hours of abx therapy, can deescalate as sensitivities return -Pending blood and urine culture, GAS swab -Duonebs PRN, tylenol PRN, mucinex -admit medical/inpt Hx of acquired asplenia due to hereditary spherocytosis -Has received all of required vaccinations dvt ppx: SCD gi ppx: none dispo: >[address] Wahl FMR H&P: Upper Level - Pertinent history 48 yo F with PMH of splenectomy 2/2 hereditary spherocytosis presenting with fever and cough over the last 3 days. Pt has been on prophylactic PCN BID but presented to ER when symptoms did not improve. Pt has a hx of multiple hospitalizations due to sepsis concerns. In ER, pt received 2L NS, Ceftriaxone 2g, and Azithromycin 500mg. - Pertinent findings Initial HR 122, Tmax 100.6, otherwise VSS Gen: pleasant in NAD CV: RRR, no murmurs Resp: unlabored, CTAB Abd: soft, BS+, NTTP - Plan Date/Time: 10/28/18 1349 I, Kevin Valdez MD PGY3, have evaluated this patient and agree with findings/ plan as outlined by marketing intern resident. Pertinent changes/additions are listed here. 1. Sepsis likely 2/2 viral URI in setting of asplenia -Pt presents with fever, tachycardia, leukocytosis and complaints of viral URI symptoms. CXR shows no acute abnormalities. -Pt has a history of splenectomy due to hereditary spherocytosis and is therefore immunosuppressed. -Pt was started on Rocephin and Azithromycin in ER due to concerns for CAP. -Will obtain procalcitonin. -In order to better cover encapsulated organisms and possible resistance of Strep pneumo to beta lactams, will transition pt to Rocephin and Vancomycin. Continue mIVF. -Blood cultures obtained in ER. Will also add urine culture. Due to viral URI complaints, will obtain viral respiratory panel. -Low suspicion for meningitis at this time. -Can likely deescalate abx therapy as cultures result. 2. Splenectomy 2/2 hereditary spherocytosis -See above. FULL code PPx: SCDs for VTE, no GI indicated. disposition: Admit to inpatient medical floor for anticipated length of stay greater than two midnights, pending clinical course. Addendum - Attending - Attending Attestation Date/Time: 10/29/18 [id number] I personally evaluated the patient and discussed the management with Dr. Sierra I agree with the History, Examination, Assessment and Plan documented above with any addition or exceptions noted below.
[2018-10-28] MEDS ORDERED: Lorazepam 2 MG/ML VIAL ONE (14:26)
[2018-10-28] MEDS ORDERED: Vancomycin HCl 1.75 GM in Sodium Chloride 0.9% 500 ML IVPB SCH (16:00)
[2018-10-28 16:24] VITALS: BMI 27.4
[2018-10-28 16:45] LABS: Strep pneumo Urine Ag NEGATIVE (NEGATIVE)
[2018-10-28] MEDS: Guaifenesin DM 100-10/5 ML UDCUP PO PRN ×2 (16:59→21:36)
[2018-10-28] MEDS ORDERED: Vancomycin HCl 1 GM in Premix Bag 1 BAG IVPB SCH (17:00)
[2018-10-28] MEDS ORDERED: Cyclobenzaprine 10 MG TAB PO PRN (17:13)
[2018-10-28] MEDS ORDERED: busPIRone HCl 10 MG TAB PO PRN (17:13)
[2018-10-28] MEDS: Lactated Ringer's 1,000 ML IV SCH (20:16)
[2018-10-28] MEDS: Montelukast Sodium 10 mg Tablet PO SCH (20:17)
[2018-10-28] MEDS: Acetaminophen 500 MG TAB PO PRN (20:17)
[2018-10-28] MEDS: Benzonatate 100 MG CAP PO PRN (20:17)
[2018-10-28] MEDS ORDERED: MELATONIN 20 MG PO SCH (21:00)
[2018-10-28] MEDS: Zolpidem Tartrate 5 MG TAB PO SCH (21:24)
[2018-10-28] MEDS: Melatonin 3 MG TAB PO SCH (21:40)
[2018-10-29] MEDS: Benzonatate 100 MG CAP PO PRN ×4 (03:30→20:13)
[2018-10-29] MEDS: Guaifenesin DM 100-10/5 ML UDCUP PO PRN ×4 (03:30→20:07)
[2018-10-29] MEDS: Vancomycin HCl 1 GM in Premix Bag 1 BAG IVPB SCH ×2 (03:30→15:40)
[2018-10-29] MEDS: Lactated Ringer's 1,000 ML IV SCH (03:31)
--- NOTE | 2018-10-29 06:10 | PDOC.FM ---
- Subjective Subjective: Patient complains of coughing this AM. Otherwise, eating and drinking, voiding and stooling normally. - Objective Vital Signs & Weight: Vital Signs (12 hours) Temp Pulse Resp BP Pulse Ox 10/29/18 04:00 97.6 F 95 18 94/63 96 10/29/18 00:00 98.2 F 92 16 105/71 92 L 10/28/18 20:01 99.2 F 103 H 18 116/74 92 L 10/28/18 19:51 95 10/28/18 18:59 93 L Weight Weight 77.167 kg I&O: 10/27/18 10/28/18 10/29/18 06:59 06:59 06:59 Intake Total 1989 Balance 1989 Result Diagrams: 10/29/18 05:59 10/29/18 05:59 Phys Exam - Physical Examination Coughing on exam Respiratory: no wheezing, clear to auscultation bilateral Cardiovascular: RRR, no significant murmur Gastrointestinal: soft, non-tender, no distention, positive bowel sounds Musculoskeletal: no edema, pulses present Psychiatric: normal affect, A&O x 3 Skin: no rash, normal turgor, cap refill <2 seconds Dx/Plan (1) Sepsis, viral Code(s): A41.89 - OTHER SPECIFIED SEPSIS; B97.89 - OTH VIRAL AGENTS THE CAUSE OF DISEASES CLASSD ELSWHR Status: Acute (2) Hereditary spherocytosis Code(s): D58.0 - HEREDITARY SPHEROCYTOSIS Status: Chronic - Plan Plan: 48 yo F with 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 Continued Vanc and rocephin to cover for encapsulated organisms. 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 Ross. I agree with the History, Examination, Assessment and Plan documented above with any addition or exceptions noted below. Patient doing well. PCT reassuring. She is here for IV abx until negative cultures result. Seems her symptoms are related to URI. Flu swab pending. Continue symptomatic treatment and await cx results.
[2018-10-29 06:26] LABS: Anion Gap 12 mmol/L (10-20); BUN (Urea Nitrogen) 14 mg/dL (7.0-18.7); Calc. Creatinine Clearance 120 mL/min (70-130); Calcium 9.2 mg/dL (7.8-10.44); Carbon Dioxide 23 mmol/L (22-29); Chloride 110 mmol/L (98-107); Estimated GFR-MDRD 90; Glucose 100 mg/dL (70-105); Potassium 3.6 mmol/L (3.5-5.1); Sodium 141 mmol/L (136-145)
[2018-10-29 06:30] LABS: Band 2 % (5-11); Eosinophils 6 % (0-10); Hemoglobin 12.7 g/dL (12.0-16.0); Lymphocytes 40 % (21-51); MDiff Complete? YES; Mean Corpuscular HGB CONC 34.5 g/dL (32.0-36.0); Mean Corpuscular Hemoglobin 30.8 pg (27.0-31.0); Mean Corpuscular Volume 89.3 fL (78.0-98.0); Mean Platelet Volume 7.1 fL (7.4-10.4); Monocytes 23 % (0-10); Neutrophil 23 % (42-75); Platelet Count 388 thou/uL (130-400); RBC Distribution Width 11.8 % (11.5-14.5); Reactive Lymphocytes 6 % (0-10); Red Blood Cell (RBC) Count 4.13 mill/uL (4.20-5.40); White Blood Cell (WBC) Count 5.5 thou/uL (4.8-10.8)
[2018-10-29] MEDS: Fish Oil 1,000 MG CAP PO SCH (08:58)
[2018-10-29] MEDS: Meloxicam 15 MG TAB PO SCH (08:58)
[2018-10-29] MEDS: DULoxetine 60 MG CAP PO SCH (08:58)
[2018-10-29] MEDS: Lactinex Tablet PO SCH (08:59)
[2018-10-29] MEDS: Aspirin 81 mg Enteric Coated Tablet PO SCH (08:59)
[2018-10-29] MEDS: Multivit, Therapeutic 1 TAB PO SCH (08:59)
[2018-10-29] MEDS ORDERED: Gabapentin 400 MG CAP PO SCH (09:00)
[2018-10-29] MEDS: cefTRIAXone\\ROCEPHIN 1 GM in Sodium Chloride 0.9% 100 ML IVPB SCH (12:26)
[2018-10-29] MEDS: Acetaminophen 500 MG TAB PO PRN (20:06)
[2018-10-29] MEDS: Zolpidem Tartrate 5 MG TAB PO SCH (20:07)
[2018-10-29] MEDS: Montelukast Sodium 10 mg Tablet PO SCH (20:07)
[2018-10-29] MEDS: Melatonin 3 MG TAB PO SCH (20:07)
[2018-10-29] MEDS: Gabapentin 400 MG CAP PO SCH (20:08)
[2018-10-30] MEDS: Vancomycin HCl 1 GM in Premix Bag 1 BAG IVPB SCH (05:17)
[2018-10-30] MEDS: Vancomycin HCl 1.25 GM in Sodium Chloride 0.9% 250 ML 250 ML IVPB SCH ×2 (05:42→18:29)
[2018-10-30] MEDS: Guaifenesin DM 100-10/5 ML UDCUP PO PRN (05:43)
[2018-10-30] MEDS: Benzonatate 100 MG CAP PO PRN ×2 (05:43→20:44)
--- NOTE | 2018-10-30 06:22 | PDOC.FM ---
Addendum entered and electronically signed by Olive Ross MD 10/30/18 08:02: Addendum to A/P: Sepsis 2/2 Metapneumovirus URI Original Note: - Subjective Subjective: Patient continues to cough this morning. Discussed respiratory viral panel results. Patient is asking if she can go home today. - Objective Vital Signs & Weight: Vital Signs (12 hours) Temp Pulse Resp BP Pulse Ox 10/30/18 05:07 98 10/30/18 04:00 98.5 F 10/29/18 19:30 98 10/29/18 19:21 99.5 F 100 18 122/68 98 Weight Weight 77.167 kg I&O: 10/28/18 10/29/18 10/30/18 06:59 06:59 06:59 Intake Total 1989 2920 Balance 1989 2920 Result Diagrams: 10/29/18 05:59 10/29/18 05:59 Phys Exam - Physical Examination Constitutional: NAD HEENT: moist MMs Respiratory: no wheezing, no rales, no rhonchi, clear to auscultation bilateral Cardiovascular: RRR, no significant murmur, no rub Gastrointestinal: soft, non-tender, no distention, positive bowel sounds Musculoskeletal: no edema, pulses present Neurological: non-focal, moves all 4 limbs Psychiatric: normal affect, A&O x 3 Skin: no rash, normal turgor Dx/Plan (1) Sepsis, viral Code(s): A41.89 - OTHER SPECIFIED SEPSIS; B97.89 - OTH VIRAL AGENTS THE CAUSE OF DISEASES CLASSD ELSWHR Status: Acute (2) Hereditary spherocytosis Code(s): D58.0 - HEREDITARY SPHEROCYTOSIS Status: Chronic - Plan Plan: 48 yo F with 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 Continued Vanc and rocephin to cover for encapsulated organisms. 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 Ross. I agree with the History, Examination, Assessment and Plan documented above with any addition or exceptions noted below. Patient doing very well. WBC stable, cultures negative to date, and PCT reassuring. Her viral cx came back with metapneumovirus, the likely cause of her symptoms and fever. Will continue abx and await final cultures per recommendations for fever/asplenia patients. Likely d/c tomorrow.
[2018-10-30] MEDS: DULoxetine 60 MG CAP PO SCH (08:16)
[2018-10-30] MEDS: Lactinex Tablet PO SCH (08:17)
[2018-10-30] MEDS: Multivit, Therapeutic 1 TAB PO SCH (08:17)
[2018-10-30] MEDS: Aspirin 81 mg Enteric Coated Tablet PO SCH (08:17)
[2018-10-30] MEDS: Fish Oil 1,000 MG CAP PO SCH (08:17)
[2018-10-30] MEDS: Meloxicam 15 MG TAB PO SCH (08:17)
[2018-10-30] MEDS: cefTRIAXone\\ROCEPHIN 1 GM in Sodium Chloride 0.9% 100 ML IVPB SCH (14:03)
[2018-10-30] MEDS: Zolpidem Tartrate 5 MG TAB PO SCH (20:37)
[2018-10-30] MEDS: Montelukast Sodium 10 mg Tablet PO SCH (20:38)
[2018-10-30] MEDS: Gabapentin 400 MG CAP PO SCH (20:38)
[2018-10-30] MEDS: Melatonin 3 MG TAB PO SCH (20:39)
[2018-10-31 04:37] VITALS: TEMP 98.6
--- NOTE | 2018-10-31 05:45 | PDOC.FM ---
- Subjective Subjective: Patient feeling well this AM, other than she had difficulty resting. - Objective Vital Signs & Weight: Vital Signs (12 hours) Temp Pulse Resp BP Pulse Ox 10/31/18 04:00 98.6 F 88 20 102/70 93 L 10/31/18 00:32 97.7 F 93 20 102/71 94 L 10/30/18 20:00 94 L 10/30/18 19:03 98.6 F 88 20 125/85 96 Weight Weight 77.167 kg I&O: 10/29/18 10/30/18 10/31/18 06:59 06:59 06:59 Intake Total 1989 2920 1720 Balance 1989 2920 1720 Result Diagrams: 10/29/18 05:59 10/29/18 05:59 Phys Exam - Physical Examination Constitutional: NAD Respiratory: no wheezing, clear to auscultation bilateral Cardiovascular: RRR, no significant murmur Gastrointestinal: soft, non-tender, no distention, positive bowel sounds Musculoskeletal: no edema, pulses present Psychiatric: normal affect Skin: no rash, normal turgor Dx/Plan (1) Sepsis, viral Code(s): A41.89 - OTHER SPECIFIED SEPSIS; B97.89 - OTH VIRAL AGENTS THE CAUSE OF DISEASES CLASSD ELSWHR Status: Acute (2) Hereditary spherocytosis Code(s): D58.0 - HEREDITARY SPHEROCYTOSIS Status: Chronic - Plan Plan: 48 yo F with 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 Continued Vanc and rocephin to cover for encapsulated organisms. 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 Addendum - Attending - Attending Attestation Date/Time: 10/31/18 0529 I personally evaluated the patient and discussed the management with Dr. Ross. I agree with the History, Examination, Assessment and Plan documented above with any addition or exceptions noted below. Patient has been afebrile since admission and cultures negative. She will be discharged home today. Suspect fever episode due to URI 2/2 human metapneumovirus. Labs reassuring that no serious bacterial infection is present.
[2018-10-31] MEDS: Vancomycin HCl 1.25 GM in Sodium Chloride 0.9% 250 ML 250 ML IVPB SCH (05:51)
[2018-10-31] MEDS: Meloxicam 15 MG TAB PO SCH (08:31)
[2018-10-31] MEDS: Aspirin 81 mg Enteric Coated Tablet PO SCH (08:31)
[2018-10-31] MEDS: Multivit, Therapeutic 1 TAB PO SCH (08:31)
[2018-10-31] MEDS: DULoxetine 60 MG CAP PO SCH (08:31)
[2018-10-31] MEDS: Fish Oil 1,000 MG CAP PO SCH (08:31)
[2018-10-31] MEDS: Guaifenesin DM 100-10/5 ML UDCUP PO PRN (08:32)
[2018-10-31] MEDS: Lactinex Tablet PO SCH (08:32)
[2018-10-31 12:01] VITALS: BP 112/78
== END 2018-10-31 12:37 | disposition home or self-care (01) | DRG 872 ==
LOC: ERS 12:14 → T4-A 14:39
PROVIDERS: ADMIT Family Medicine; ATTEND Family Medicine
DX: A41.89 Other specified sepsis (principal); B97.89 Other viral agents as the cause of diseases classified elsewhere; J06.9 Acute upper respiratory infection, unspecified; D58.0 Hereditary spherocytosis; J45.909 Unspecified asthma, uncomplicated; Z88.8 Allergy status to other drugs, medicaments and biological substances; Z79.82 Long term (current) use of aspirin; Z85.3 Personal history of malignant neoplasm of breast; Z90.10 Acquired absence of unspecified breast and nipple; Z90.81 Acquired absence of spleen; Z90.721 Acquired absence of ovaries, unilateral
CPT/HCPCS: 36415; 71045; 80048; 80053; 80202; 83605; 84145; 85007; 85025; 85027; 87040; 87081; 87086; 87430; 87633; 87899; 96365; 96367; 96375; J0456; J0696; J2060; J3370; J7050

== ENCOUNTER 2021-06-22 14:45 | Inpatient (IN) | payer BC ==
[2021-06-22 15:46] LABS: Hemoglobin 14.4 g/dL (12.0-16.0); Mean Corpuscular HGB CONC 35.8 g/dL (32.0-36.0); Mean Corpuscular Hemoglobin 32.2 pg (27.0-31.0); Mean Corpuscular Volume 89.9 fL (78.0-98.0); Mean Platelet Volume 7.2 fL (7.4-10.4); Platelet Count 485 thou/uL (130-400); Red Blood Cell (RBC) Count 4.47 mill/uL (4.20-5.40); White Blood Cell (WBC) Count 23.6 thou/uL (4.8-10.8)
[2021-06-22] MEDS ORDERED: Acetaminophen 500 MG TAB ONE (15:58)
[2021-06-22 16:05] LABS: Band 34 % (5-11); Eosinophils 1 % (0-10); Lymphocytes 14 % (21-51); MDiff Complete? YES; Monocytes 18 % (0-10); Neutrophil 24 % (42-75); Platelet Morphology Comment Appears Increased; RBC Morphology Normal; Reactive Lymphocytes 9 % (0-10)
[2021-06-22] MEDS ORDERED: Iopamidol-370 76% 500 ML 1 ML ONE (16:10)
[2021-06-22 16:15] LABS: ALT (SGPT) 78 U/L (8-55); AST (SGOT) 89 U/L (5-34); Albumin 4.1 g/dL (3.5-5.0); Alkaline Phosphatase 82 U/L (40-110); Anion Gap 13 mmol/L (10-20); BUN (Urea Nitrogen) 14 mg/dL (9.8-20.1); Bilirubin, Total 0.6 mg/dL (0.2-1.2); Calc. Creatinine Clearance 0 mL/min (70-130); Calcium 9.7 mg/dL (7.8-10.44); Carbon Dioxide 26 mmol/L (22-29); Chloride 104 mmol/L (98-107); Globulin 2.9 g/dL (2.4-3.5); Glucose 102 mg/dL (70-105); Potassium 4.1 mmol/L (3.5-5.1); Sodium 139 mmol/L (136-145)
[2021-06-22] MEDS ORDERED: cefTRIAXone\\ROCEPHIN 2 GM VIAL ONE (16:19)
[2021-06-22] MEDS ORDERED: Azithromycin 500 MG VIAL ONE (16:19)
[2021-06-22] MEDS ORDERED: Calcium Carbonate 500 MG ChewTAB PO PRN (18:44)
[2021-06-22] MEDS ORDERED: busPIRone HCl 10 MG TAB PO PRN (19:14)
[2021-06-22 19:42] LABS: HBCM Index 0.04 S/CO (0-0.79); Hep A IgM AB Non-Reactive (NonReactive); Hep A IgM S/CO 0.08 S/CO (0-0.79); Hep B Surf Ag Non-Reactive S/CO (NonReactive); Hep C IgG Ab Non-Reactive (NonReactive); Hep C Index 0.14 S/CO (0-0.79); Hepatitis B Core IgM Abs Non-Reactive (NonReactive)
[2021-06-22] MEDS ORDERED: Lorazepam 2 MG/ML VIAL ONE (20:00)
[2021-06-22] MEDS ORDERED: Zolpidem Tartrate 5 MG TAB PO SCH (22:30)
[2021-06-22 22:31] VITALS: BMI 30.8
[2021-06-22] MEDS: Zolpidem Tartrate 5 MG TAB PO SCH (22:40)
[2021-06-22] MEDS: Montelukast Sodium 10 mg Tablet PO SCH (22:41)
[2021-06-22] MEDS: Acetaminophen 325 MG TAB PO PRN (22:41)
[2021-06-22] MEDS: Cefepime 2 GM in Sodium Chloride 0.9% 100 ML IVPB SCH (22:41)
[2021-06-22] MEDS: Lactated Ringer's 1,000 ML IV SCH (22:52)
[2021-06-22] MEDS ORDERED: Lorazepam 0.5 MG TAB PO SCH (23:00)
[2021-06-22] MEDS ORDERED: Meloxicam 15 MG TAB PO SCH (23:00)
[2021-06-22] MEDS ORDERED: Gabapentin 400 MG CAP PO SCH (23:15)
[2021-06-22] MEDS: Cyclobenzaprine 10 MG TAB PO PRN (23:33)
[2021-06-22] MEDS ORDERED: Prevnar 13-Val Conj/PF 0.5 ML SYRINGE IM ONE (23:45)
[2021-06-22] MEDS ORDERED: FLU VACC QS2021-22(6MOS UP)/PF 60 MCG/0.5 ML SYRINGE IM ONE (23:45)
[2021-06-23] MEDS: Vancomycin HCl 1.25 GM in Sodium Chloride 0.9% 250 ML 250 ML IVPB SCH ×3 (00:06→23:48)
[2021-06-23] MEDS ORDERED: guaiFENesin/DM ER PO SCH (02:15)
[2021-06-23 05:17] LABS: #Basophils 0.1 thou/uL (0.0-0.2); #Eosinphils 0.5 thou/uL (0.0-0.7); #Lymphocytes 3.3 thou/uL (1.20-3.40); #Monocytes 1.8 thou/uL (0.11-0.59); #Neutrophils 8.2 thou/uL (1.40-6.50); %Basophils 0.8 % (0.0-1.0); %Eosinophils 3.5 % (0.0-10.0); %Monocytes 12.9 % (0.0-10.0); %Neutrophils 58.7 % (42.0-75.0); Hemoglobin 12.5 g/dL (12.0-16.0); Mean Corpuscular HGB CONC 34.6 g/dL (32.0-36.0); Mean Corpuscular Hemoglobin 31.3 pg (27.0-31.0); Mean Corpuscular Volume 90.4 fL (78.0-98.0); Mean Platelet Volume 7.3 fL (7.4-10.4); Platelet Count 437 thou/uL (130-400); RBC Distribution Width 12.2 % (11.5-14.5); White Blood Cell (WBC) Count 13.9 thou/uL (4.8-10.8)
[2021-06-23 05:24] LABS: ALT (SGPT) 64 U/L (8-55); AST (SGOT) 65 U/L (5-34); Albumin 3.4 g/dL (3.5-5.0); Alkaline Phosphatase 69 U/L (40-110); Anion Gap 11 mmol/L (10-20); BUN (Urea Nitrogen) 15 mg/dL (9.8-20.1); Bilirubin, Total 0.5 mg/dL (0.2-1.2); Calc. Creatinine Clearance 127 mL/min (70-130); Calcium 8.5 mg/dL (7.8-10.44); Carbon Dioxide 22 mmol/L (22-29); Chloride 110 mmol/L (98-107); Globulin 2.2 g/dL (2.4-3.5); Glucose 102 mg/dL (70-105); Potassium 3.6 mmol/L (3.5-5.1); Protein, Total 5.6 g/dL (6.0-8.3); Sodium 139 mmol/L (136-145)
[2021-06-23] MEDS: Cefepime 2 GM in Sodium Chloride 0.9% 100 ML IVPB SCH ×3 (06:20→20:48)
[2021-06-23] MEDS: Lactated Ringer's 1,000 ML IV SCH ×2 (06:21→17:07)
[2021-06-23] MEDS ORDERED: Non-Formulary Item 1 EACH (Divalproex [Depakote] 125 MG Tab) PO SCH (09:00)
[2021-06-23] MEDS: Divalproex Sodium 125 mg Sprinkle Capsule PO SCH (10:24)
[2021-06-23] MEDS: Lorazepam 0.5 MG TAB PO SCH (10:25)
[2021-06-23] MEDS: Meloxicam 15 MG TAB PO SCH (10:25)
[2021-06-23] MEDS: DULoxetine 60 MG CAP PO SCH (10:25)
[2021-06-23] MEDS: Gabapentin 400 MG CAP PO SCH (10:25)
[2021-06-23] MEDS: Aspirin 81 mg Enteric Coated Tablet PO SCH (10:25)
[2021-06-23] MEDS: Enoxaparin Sodium 40 MG/0.4 ML SYRINGE SC SCH (10:26)
[2021-06-23] MEDS: guaiFENesin/DM ER PO SCH ×2 (10:26→20:48)
[2021-06-23] MEDS ORDERED: diphenhydrAMINE 25 MG CAP PO PRN (13:36)
[2021-06-23] MEDS: Acetaminophen 325 MG TAB PO PRN (17:46)
[2021-06-23] MEDS: Cyclobenzaprine 10 MG TAB PO PRN (20:48)
[2021-06-23] MEDS: Montelukast Sodium 10 mg Tablet PO SCH (20:48)
[2021-06-23] MEDS: Zolpidem Tartrate 5 MG TAB PO SCH (20:48)
[2021-06-24 04:54] LABS: Hemoglobin 13.2 g/dL (12.0-16.0); Mean Corpuscular HGB CONC 35.9 g/dL (32.0-36.0); Mean Corpuscular Hemoglobin 32.8 pg (27.0-31.0); Mean Corpuscular Volume 91.4 fL (78.0-98.0); Platelet Count 412 thou/uL (130-400); Red Blood Cell (RBC) Count 4.01 mill/uL (4.20-5.40); White Blood Cell (WBC) Count 9.1 thou/uL (4.8-10.8)
[2021-06-24 05:09] LABS: ALT (SGPT) 77 U/L (8-55); AST (SGOT) 67 U/L (5-34); Albumin 3.5 g/dL (3.5-5.0); Alkaline Phosphatase 72 U/L (40-110); Anion Gap 12 mmol/L (10-20); BUN (Urea Nitrogen) 13 mg/dL (9.8-20.1); Bilirubin, Total 0.6 mg/dL (0.2-1.2); Calc. Creatinine Clearance 113 mL/min (70-130); Carbon Dioxide 23 mmol/L (22-29); Chloride 106 mmol/L (98-107); Globulin 2.7 g/dL (2.4-3.5); Glucose 96 mg/dL (70-105); Potassium 3.9 mmol/L (3.5-5.1); Protein, Total 6.2 g/dL (6.0-8.3); Sodium 137 mmol/L (136-145)
[2021-06-24 05:15] LABS: Band 3 % (5-11); Eosinophils 8 % (0-10); Lymphocytes 11 % (21-51); MDiff Complete? YES; Monocytes 15 % (0-10); Neutrophil 62 % (42-75); Reactive Lymphocytes 1 % (0-10)
[2021-06-24] MEDS: Cefepime 2 GM in Sodium Chloride 0.9% 100 ML IVPB SCH ×2 (05:18→15:27)
[2021-06-24] MEDS: Acetaminophen 325 MG TAB PO PRN (06:11)
[2021-06-24] MEDS: Cyclobenzaprine 10 MG TAB PO PRN (06:12)
[2021-06-24] MEDS: Meloxicam 15 MG TAB PO SCH (08:34)
[2021-06-24] MEDS: guaiFENesin/DM ER PO SCH (08:35)
[2021-06-24] MEDS: Gabapentin 400 MG CAP PO SCH (08:35)
[2021-06-24] MEDS: Lorazepam 0.5 MG TAB PO SCH (08:35)
[2021-06-24] MEDS: Divalproex Sodium 125 mg Sprinkle Capsule PO SCH (08:35)
[2021-06-24] MEDS: DULoxetine 60 MG CAP PO SCH (08:35)
[2021-06-24] MEDS: Enoxaparin Sodium 40 MG/0.4 ML SYRINGE SC SCH (08:35)
[2021-06-24] MEDS: Aspirin 81 mg Enteric Coated Tablet PO SCH (08:35)
[2021-06-24] MEDS ORDERED: Fluticasone Propionate Nasal Spray 16 gm Bottle NASAL SCH (09:00)
[2021-06-24 10:36] LABS: Vancomycin, Trough 10.9 ug/mL
[2021-06-24 13:22] VITALS: BP 124/82; TEMP 98.8
[2021-06-24] MEDS: Vancomycin HCl 1.25 GM in Sodium Chloride 0.9% 250 ML 250 ML IVPB SCH (15:26)
== END 2021-06-24 15:19 | disposition home or self-care (01) | DRG 871 ==
LOC: ERS 14:45 → ERHOLD 16:52 → 2NO 21:14
PROVIDERS: ADMIT Family Medicine; ATTEND Family Medicine
DX: A41.9 Sepsis, unspecified organism (principal); J18.9 Pneumonia, unspecified organism; I31.3 Pericardial effusion (noninflammatory); D58.0 Hereditary spherocytosis; F32.9 Major depressive disorder, single episode, unspecified; F41.9 Anxiety disorder, unspecified; N95.1 Menopausal and female climacteric states; G47.00 Insomnia, unspecified; R74.01 Elevation of levels of liver transaminase levels; J30.2 Other seasonal allergic rhinitis; Z90.81 Acquired absence of spleen
CPT/HCPCS: 36415; 71275; 76705; 80053; 80074; 80202; 83605; 84145; 84484; 85025; 87040; 93005; J0456; J0692; J0696; J1650; J2060; J3370; J3490; J7050; J7120; Q9967

== ENCOUNTER 2022-01-07 14:34 | Emergency (ER) | payer BC ==
[2022-01-07] MEDS ORDERED: cefTRIAXone\\ROCEPHIN 2 GM VIAL ONE (15:54)
[2022-01-07 16:12] LABS: #Basophils 0.1 thou/uL (0.0-0.2); #Eosinphils 0.6 thou/uL (0.0-0.7); #Lymphocytes 3.3 thou/uL (1.20-3.40); #Monocytes 1.2 thou/uL (0.11-0.59); #Neutrophils 4.5 thou/uL (1.40-6.50); %Basophils 0.6 % (0.0-1.0); %Eosinophils 5.9 % (0.0-10.0); %Lymphocytes 34.2 % (21.0-51.0); %Monocytes 12.7 % (0.0-10.0); %Neutrophils 46.6 % (42.0-75.0); Hemoglobin 15.1 g/dL (12.0-16.0); Mean Corpuscular Hemoglobin 31.8 pg (27.0-31.0); Mean Platelet Volume 6.6 fL (7.4-10.4); Platelet Count 532 thou/uL (130-400); Red Blood Cell (RBC) Count 4.76 mill/uL (4.20-5.40); White Blood Cell (WBC) Count 9.6 thou/uL (4.8-10.8)
[2022-01-07 16:33] LABS: ALT (SGPT) 24 U/L (8-55); AST (SGOT) 27 U/L (5-34); Albumin 4.3 g/dL (3.5-5.0); Alkaline Phosphatase 84 U/L (40-110); Anion Gap 16 mmol/L (10-20); BUN (Urea Nitrogen) 22 mg/dL (9.8-20.1); Bilirubin, Total 0.8 mg/dL (0.2-1.2); Calc. Creatinine Clearance 0 mL/min (70-130); Calcium 9.6 mg/dL (7.8-10.44); Carbon Dioxide 22 mmol/L (22-29); Chloride 106 mmol/L (98-107); Globulin 3.1 g/dL (2.4-3.5); Glucose 104 mg/dL (70-105); Potassium 3.8 mmol/L (3.5-5.1); Protein, Total 7.4 g/dL (6.0-8.3); Sodium 140 mmol/L (136-145)
== END 2022-01-07 18:22 | disposition home or self-care (01) ==
LOC: ERS 14:34
DX: R05.9 Cough, unspecified (principal); J45.909 Unspecified asthma, uncomplicated; Z85.3 Personal history of malignant neoplasm of breast
CPT/HCPCS: 36415; 71045; 80053; 83605; 85025; 87040; 96365; J0696

== ENCOUNTER 2022-01-21 11:02 | Outpatient (CLI) | payer BC | END 2022-01-21 11:03 | disposition home or self-care (01) | LOC: TBSIIMAG 11:02 | PROVIDERS: ATTEND Orthopaedic Surgery | DX: M17.12 Unilateral primary osteoarthritis, left knee (principal); S83.282A Other tear of lateral meniscus, current injury, left knee, initial encounter; M25.462 Effusion, left knee; M71.22 Synovial cyst of popliteal space [Baker], left knee; M94.262 Chondromalacia, left knee; R60.0 Localized edema ==

== ENCOUNTER 2022-02-03 08:39 | Outpatient (CLI) | payer BC ==
[2022-02-03 09:23] LABS: #Basophils 0.1 10x3/uL (0.0-0.2); #Eosinphils 0.5 10x3/uL (0.0-0.5); #Monocytes 1.2 10x3/uL (0.0-1.1); #Neutrophils 3.3 10x3/uL (1.5-8.4); %Basophils 1.3 % (0.0-2.0); %Eosinophils 5.4 % (0.0-6.0); %Lymphocytes 40.8 % (18.0-47.0); %Monocytes 14.1 % (0.0-10.0); %Neutrophils 37.5 % (40.0-75.0); Mean Corpuscular HGB CONC 34.7 g/dL (32.0-36.0); Mean Corpuscular Hemoglobin 31.1 pg (27.0-33.0); Mean Corpuscular Volume 89.4 fl (81.6-98.3); Mean Platelet Volume 9.1 fl (7.4-10.4); Platelet Count 480 10x3/uL (150-450); RBC Distribution Width 12.5 % (11.5-14.5); Red Blood Cell (RBC) Count 4.83 10x6/uL (3.90-5.03); White Blood Cell (WBC) Count 8.7 10x3/uL (3.5-10.5)
[2022-02-03 09:48] LABS: Anion Gap 18 mmol/L (10-20); BUN (Urea Nitrogen) 21 mg/dL (9.8-20.1); Calc. Creatinine Clearance 0 mL/min (70-130); Calcium 10.2 mg/dL (7.8-10.44); Carbon Dioxide 22 mmol/L (22-29); Chloride 104 mmol/L (98-107); Glucose 117 mg/dL (70-105); Potassium 4.3 mmol/L (3.5-5.1); Sodium 140 mmol/L (136-145)
[2022-02-03 18:13] LABS: SARS-CoV-2 PCR by NAA Not Detected (NotDetected)
== END 2022-02-03 08:40 | disposition home or self-care (01) ==
LOC: LABBT 08:39
PROVIDERS: ATTEND Orthopaedic Surgery
DX: Z01.818 Encounter for other preprocedural examination (principal); S83.282A Other tear of lateral meniscus, current injury, left knee, initial encounter; Z20.822 Contact with and (suspected) exposure to COVID-19
CPT/HCPCS: 80048; 85025; 93005; 93010; U0003; U0005

== ENCOUNTER 2022-02-04 06:03 | Day surgery (SDC) | payer BC ==
[2022-02-02 14:35] VITALS: BMI 30.7
[2022-02-04] MEDS ORDERED: PROPOFOL 20 ML ONE (08:21)
[2022-02-04] MEDS ORDERED: fentaNYL Citrate/PF 100 MCG/2 ML SYRINGE ONE (09:09)
[2022-02-04] MEDS ORDERED: Midazolam HCl 2 mg/2 ml Vial ONE (09:15)
[2022-02-04] MEDS ORDERED: CEFAZOLIN 2 GM VIAL ONE (09:53)
[2022-02-04] MEDS ORDERED: Sodium Chloride 0.9% 100 ML ONE (09:53)
[2022-02-04] MEDS ORDERED: Meperidine HCl/PF 25 MG/ML VIAL ONE (11:41)
[2022-02-04] MEDS ORDERED: Labetalol HCl 100 MG/20 ML VIAL ONE (13:17)
== END 2022-02-04 15:24 | disposition home or self-care (01) ==
LOC: SDC 06:03
PROVIDERS: ATTEND Orthopaedic Surgery
PROC: 0SCD4ZZ Extirpation of Matter from Left Knee Joint, Percutaneous Endoscopic Approach (ICD-10-PCS; principal; 2022-02-04)
PROC: 0SBD4ZZ Excision of Left Knee Joint, Percutaneous Endoscopic Approach (ICD-10-PCS; principal; 2022-02-04)
DX: M23.42 Loose body in knee, left knee (principal); M24.19 Other articular cartilage disorders, other specified site; M17.12 Unilateral primary osteoarthritis, left knee; M71.22 Synovial cyst of popliteal space [Baker], left knee; J45.909 Unspecified asthma, uncomplicated; I10 Essential (primary) hypertension; D64.9 Anemia, unspecified; Z79.899 Other long term (current) drug therapy; Z88.8 Allergy status to other drugs, medicaments and biological substances
CPT/HCPCS: J2175; J2250; J2704; J3490

== ENCOUNTER 2024-03-23 16:03 | Inpatient (IN) | payer BC ==
[2024-03-23 16:40] LABS: #Basophils 0.08 10x3/uL (0.0-0.2); #Eosinphils Less than 0.03 10x3/uL (0.0-0.7); %Basophils 0.4 % (0.0-1.0); %Eosinophils 0.1 % (0.0-10.0); %Lymphocytes 9.6 % (21.0-51.0); %Monocytes 12.9 % (0.0-10.0); Hematocrit 35.6 % (36.0-47.0); Hemoglobin 12.6 g/dL (12.0-16.0); Mean Corpuscular HGB CONC 35.4 g/dL (32.0-36.0); Mean Corpuscular Hemoglobin 31.3 pg (27.0-31.0); Mean Corpuscular Volume 88.3 fL (78.0-98.0); Mean Platelet Volume 9.1 fL (7.4-10.4); Platelet Count 425 10x3/uL (130-400); RBC Distribution Width 12.9 % (11.5-14.5); Red Blood Cell (RBC) Count 4.03 mill/uL (4.20-5.40)
[2024-03-23 16:58] LABS: ALT (SGPT) 36 U/L (8-55); AST (SGOT) 42 U/L (5-34); Albumin 3.3 g/dL (3.5-5.0); Alkaline Phosphatase 81 U/L (40-110); Anion Gap 13 mmol/L (10-20); BUN (Urea Nitrogen) 19 mg/dL (9.8-20.1); Bilirubin, Total 0.7 mg/dL (0.2-1.2); CK (CPK) 128 U/L (29-168); Calc. Creatinine Clearance 0 mL/min (70-130); Calcium 8.9 mg/dL (7.8-10.44); Carbon Dioxide 20 mmol/L (22-29); Chloride 105 mmol/L (98-107); Estimated GFR 80; Globulin 3.3 g/dL (2.4-3.5); Glucose 109 mg/dL (70-105); Protein, Total 6.6 g/dL (6.0-8.3); Sodium 134 mmol/L (136-145)
[2024-03-23 16:59] LABS: Acetaminophen Less than 10 mcg/mL (10.0-30.0); Alcohol Less than 10.0 mg/dL (Less than 10); Salicylate Less than 8.0 mg/dL (15.0-30.0)
[2024-03-23] MEDS ORDERED: Ketorolac Tromethamine 30 MG (1 mL) VIAL ONE (17:32)
[2024-03-23] MEDS ORDERED: cefTRIAXone (ROCEPHIN) 2 GM VIAL ONE (17:32)
[2024-03-23] MEDS ORDERED: Vancomycin 1 GM/200 ML (FROZEN) BAG ONE (17:33)
[2024-03-23] MEDS ORDERED: Sodium Chloride 0.9% 100 ML ONE (17:33)
[2024-03-23 17:40] LABS: Influenza A by NAA Not Detected (NotDetected); Influenza B by NAA Not Detected (NotDetected); SARS-CoV-2 NAA Rapid Test Not Detected (NotDetected)
[2024-03-23 18:11] LABS: Amphetamine Not Detected (NotDetected); Barbiturates Screen Not Detected (NotDetected); Benzodiazepine Screen Detected (NotDetected); Cocaine Metabolite Screen Not Detected (NotDetected); Methadone Not Detected (NotDetected); Methamphetamine Not Detected (NotDetected); Opiate Screen Not Detected (NotDetected); Oxycodone Screen Not Detected (NotDetected); Phencyclidine (PCP) Not Detected (NotDetected); THC/Cannabinoid Screen Not Detected (NotDetected); Tricyclic Screen Detected (NotDetected)
[2024-03-23 18:24] LABS: Bilirubin Negative (Negative); Blood, Urine Negative (Negative); CAUTI Indications for Culture Pelvic or flank pain; Clarity Turbid (Clear); Glucose, Urine (Dipstick) Normal (Negative); Ketone, Urine 10 mg/dL (Negative); Leukocyte 500 Leu/uL (Negative); Nitrite 2+ (Negative); Protein, Urine (Dipstick) 30 mg/dL (Neg-Trace); Specific Gravity, Urine 1.014 (1.002-1.036); Squamous Epithelial 0-3 HPF (0-3); Urobilinogen Normal mg/dL (Less than 2); WBC/HPF Greater than 50 HPF (0-3)
[2024-03-23 18:34] LABS: Bacteria/HPF 4+ HPF (None Seen); Urine Culture Reflex Yes Yes
[2024-03-23] MEDS ORDERED: Ondansetron ODT 4 MG TAB PO PRN (20:10)
[2024-03-23 21:11] VITALS: BMI 31.1
[2024-03-23] MEDS ORDERED: Acetaminophen 325 MG TAB PO SCH (22:00)
[2024-03-23] MEDS: Ibuprofen 200 MG TAB PO SCH (22:12)
[2024-03-23] MEDS: Montelukast Sodium 10 mg Tablet PO SCH (23:07)
[2024-03-23] MEDS: DULoxetine 60 MG CAP PO SCH (23:08)
[2024-03-23] MEDS: Vancomycin (BATCH) 1.25 GM in Premix 1 BAG IVPB SCH (23:09)
[2024-03-24] MEDS: Acetaminophen 325 MG TAB PO SCH (00:59)
[2024-03-24] MEDS: Meloxicam 15 MG TAB PO SCH (01:18)
[2024-03-24] MEDS: QUEtiapine 300 MG TAB PO SCH ×2 (01:20→22:11)
[2024-03-24] MEDS: Zolpidem Tartrate 5 MG TAB PO SCH ×2 (01:20→22:10)
[2024-03-24 04:30] LABS: #Basophils 0.14 10x3/uL (0.0-0.2); %Basophils 0.6 % (0.0-1.0); %Eosinophils 0.9 % (0.0-10.0); %Lymphocytes 13.5 % (21.0-51.0); %Monocytes 15.4 % (0.0-10.0); %Neutrophils 68.8 % (42.0-75.0); Hematocrit 34.2 % (36.0-47.0); Hemoglobin 11.8 g/dL (12.0-16.0); Mean Corpuscular HGB CONC 34.5 g/dL (32.0-36.0); Mean Corpuscular Volume 89.8 fL (78.0-98.0); Mean Platelet Volume 9.5 fL (7.4-10.4); Platelet Count 421 10x3/uL (130-400); RBC Distribution Width 13.2 % (11.5-14.5); Red Blood Cell (RBC) Count 3.81 mill/uL (4.20-5.40)
[2024-03-24] MEDS ORDERED: Vancomycin 1.5 GM in Sodium Chloride 0.9% 250 ML 300 ML IVPB SCH (05:30)
[2024-03-24 05:39] LABS: ALT (SGPT) 32 U/L (8-55); AST (SGOT) 29 U/L (5-34); Alkaline Phosphatase 77 U/L (40-110); Anion Gap 12 mmol/L (10-20); BUN (Urea Nitrogen) 14 mg/dL (9.8-20.1); Bilirubin, Total 0.7 mg/dL (0.2-1.2); Calc. Creatinine Clearance 119 mL/min (70-130); Calcium 8.6 mg/dL (7.8-10.44); Carbon Dioxide 22 mmol/L (22-29); Chloride 107 mmol/L (98-107); Estimated GFR 95; Globulin 3.1 g/dL (2.4-3.5); Glucose 98 mg/dL (70-105); Potassium 3.8 mmol/L (3.5-5.1); Protein, Total 6.1 g/dL (6.0-8.3); Sodium 137 mmol/L (136-145)
[2024-03-24] MEDS: Levothyroxine Sodium 50 MCG TAB PO SCH (06:19)
[2024-03-24] MEDS: QUEtiapine 100 MG TAB PO SCH (07:54)
[2024-03-24] MEDS: DULoxetine 60 MG CAP PO SCH (07:54)
[2024-03-24] MEDS: Aspirin 81 mg Enteric Coated Tablet PO SCH (07:55)
[2024-03-24] MEDS: Pantoprazole DR 40 MG TAB PO SCH (07:55)
[2024-03-24] MEDS: Enoxaparin 40 MG (0.4 mL) SYRINGE SC SCH (07:55)
[2024-03-24] MEDS ORDERED: Penicillin V Potassium 250 MG TAB PO SCH (09:00)
[2024-03-24] MEDS ORDERED: Vancomycin (BATCH) 1.25 GM in Premix 1 BAG IVPB SCH (09:00)
[2024-03-24] MEDS ORDERED: QUEtiapine 25 MG TAB PO SCH (09:00)
[2024-03-24] MEDS: Lactated Ringer's 1,000 ML IV SCH (10:33)
[2024-03-24] MEDS: Meropenem 1 GM in Sodium Chloride 0.9% 100 ML IVPB SCH ×2 (16:11→16:37)
[2024-03-24] MEDS ORDERED: cefTRIAXone\\ROCEPHIN 2 GM in Sodium Chloride 0.9% 100 ML IVPB SCH (17:00)
[2024-03-24] MEDS ORDERED: Penicillin V Potassium 250 MG/5 ML Oral Solution PO SCH (21:00)
[2024-03-24] MEDS ORDERED: Cefepime 1 GM in Sodium Chloride 0.9% 100 ML IVPB SCH (21:00)
[2024-03-24] MEDS: busPIRone HCl 10 MG TAB PO PRN (22:10)
[2024-03-24] MEDS: Gabapentin 400 MG CAP PO SCH (22:10)
[2024-03-24] MEDS: Lorazepam 0.5 MG TAB PO SCH (22:11)
[2024-03-24] MEDS: Cyclobenzaprine 10 MG TAB PO PRN (22:11)
[2024-03-24] MEDS: Melatonin 3 MG TAB PO SCH (22:11)
[2024-03-24] MEDS: Divalproex Sodium DR 500 MG TAB PO SCH (22:11)
[2024-03-24] MEDS: Penicillin V Potassium 250 MG TAB PO SCH (22:18)
[2024-03-25] MEDS: Lorazepam 0.5 MG TAB PO SCH (00:07)
[2024-03-25] MEDS: Meropenem 1 GM in Sodium Chloride 0.9% 100 ML IVPB SCH (00:08)
[2024-03-25] MEDS: Ibuprofen 600 MG TAB PO PRN (04:08)
[2024-03-25] MEDS: Lactated Ringer's 1,000 ML IV SCH (04:09)
[2024-03-25 05:10] LABS: #Basophils 0.09 10x3/uL (0.0-0.2); %Basophils 0.6 % (0.0-1.0); %Eosinophils 1.1 % (0.0-10.0); %Monocytes 14.1 % (0.0-10.0); %Neutrophils 65.4 % (42.0-75.0); Hematocrit 31.8 % (36.0-47.0); Hemoglobin 10.9 g/dL (12.0-16.0); Mean Corpuscular HGB CONC 34.3 g/dL (32.0-36.0); Mean Corpuscular Volume 90.3 fL (78.0-98.0); Mean Platelet Volume 9.7 fL (7.4-10.4); Platelet Count 435 10x3/uL (130-400); Red Blood Cell (RBC) Count 3.52 mill/uL (4.20-5.40)
[2024-03-25 05:11] LABS: ALT (SGPT) 38 U/L (8-55); AST (SGOT) 30 U/L (5-34); Albumin 2.8 g/dL (3.5-5.0); Alkaline Phosphatase 79 U/L (40-110); Anion Gap 13 mmol/L (10-20); BUN (Urea Nitrogen) 14 mg/dL (9.8-20.1); Bilirubin, Total 0.3 mg/dL (0.2-1.2); Calc. Creatinine Clearance 116 mL/min (70-130); Calcium 8.7 mg/dL (7.8-10.44); Carbon Dioxide 22 mmol/L (22-29); Chloride 105 mmol/L (98-107); Estimated GFR 92; Glucose 113 mg/dL (70-105); Potassium 3.6 mmol/L (3.5-5.1); Protein, Total 5.8 g/dL (6.0-8.3); Sodium 136 mmol/L (136-145)
[2024-03-25] MEDS: guaiFENesin ER 600 MG TAB PO SCH (21:09)
[2024-03-26] MEDS: Lactated Ringer's 500 ML IV SCH (04:02)
[2024-03-26 04:12] LABS: #Basophils 0.14 10x3/uL (0.0-0.2); %Basophils 0.9 % (0.0-1.0); %Eosinophils 3.5 % (0.0-10.0); %Lymphocytes 18.4 % (21.0-51.0); %Monocytes 15.2 % (0.0-10.0); %Neutrophils 61.1 % (42.0-75.0); Hematocrit 32.2 % (36.0-47.0); Mean Corpuscular HGB CONC 34.2 g/dL (32.0-36.0); Mean Corpuscular Hemoglobin 30.9 pg (27.0-31.0); Mean Corpuscular Volume 90.4 fL (78.0-98.0); Mean Platelet Volume 9.9 fL (7.4-10.4); Platelet Count 469 10x3/uL (130-400); Red Blood Cell (RBC) Count 3.56 mill/uL (4.20-5.40)
[2024-03-26 05:03] LABS: ALT (SGPT) 34 U/L (8-55); AST (SGOT) 25 U/L (5-34); Albumin 2.8 g/dL (3.5-5.0); Alkaline Phosphatase 91 U/L (40-110); Anion Gap 17 mmol/L (10-20); BUN (Urea Nitrogen) 11 mg/dL (9.8-20.1); Bilirubin, Total 0.3 mg/dL (0.2-1.2); Calc. Creatinine Clearance 117 mL/min (70-130); Calcium 8.9 mg/dL (7.8-10.44); Carbon Dioxide 23 mmol/L (22-29); Chloride 105 mmol/L (98-107); Estimated GFR 93; Globulin 3.2 g/dL (2.4-3.5); Glucose 111 mg/dL (70-105); Potassium 4.1 mmol/L (3.5-5.1); Sodium 141 mmol/L (136-145)
[2024-03-26] MEDS: Ibuprofen 200 MG TAB PO SCH (05:16)
[2024-03-26] MEDS: Loperamide HCl 2 MG CAP PO PRN (18:13)
[2024-03-27 05:34] LABS: ALT (SGPT) 29 U/L (8-55); AST (SGOT) 19 U/L (5-34); Albumin 2.6 g/dL (3.5-5.0); Alkaline Phosphatase 83 U/L (40-110); Anion Gap 11 mmol/L (10-20); BUN (Urea Nitrogen) 8 mg/dL (9.8-20.1); Bilirubin, Total 0.2 mg/dL (0.2-1.2); Calc. Creatinine Clearance 133 mL/min (70-130); Calcium 8.6 mg/dL (7.8-10.44); Carbon Dioxide 24 mmol/L (22-29); Chloride 113 mmol/L (98-107); Estimated GFR 104; Glucose 97 mg/dL (70-105); Potassium 3.2 mmol/L (3.5-5.1); Protein, Total 5.6 g/dL (6.0-8.3); Sodium 145 mmol/L (136-145)
[2024-03-27 06:13] LABS: Hematocrit 30.1 % (36.0-47.0); Hemoglobin 10.3 g/dL (12.0-16.0); Mean Corpuscular HGB CONC 34.2 g/dL (32.0-36.0); Mean Corpuscular Hemoglobin 30.3 pg (27.0-31.0); Mean Corpuscular Volume 88.5 fL (78.0-98.0); Platelet Count 487 10x3/uL (130-400); RBC Distribution Width 13.3 % (11.5-14.5)
[2024-03-27 08:06] LABS: Band 4 % (5-11); Burr Cells SLIGHT = 2-5 cells HPF (0-1); Eosinophils 8 % (0-10); Large Platelets 3.9 % (0-5); Lymphocytes 34 % (21-51); Monocytes 14 % (0-10); Neutrophil 38 % (42-75); Platelet Adequacy Comment Platelets Increased; Polychromasia SLIGHT = 2-3 cells HPF (0-2)
[2024-03-27] MEDS ORDERED: Sodium Bicarbonate 2.5 MEQ/5 ML SDV ONE (08:30)
[2024-03-27] MEDS ORDERED: Lidocaine 1% PF 5 ML VIAL ONE (08:30)
[2024-03-27] MEDS: Potassium Chloride 20 MEQ TAB PO SCH (09:38)
[2024-03-27] MEDS: Lorazepam 0.5 MG TAB PO SCH (09:38)
[2024-03-28 05:53] LABS: Hematocrit 32.4 % (36.0-47.0); Hemoglobin 10.9 g/dL (12.0-16.0); Mean Corpuscular HGB CONC 33.6 g/dL (32.0-36.0); Mean Corpuscular Hemoglobin 30.7 pg (27.0-31.0); Mean Corpuscular Volume 91.3 fL (78.0-98.0); Mean Platelet Volume 9.2 fL (7.4-10.4); Platelet Count 543 10x3/uL (130-400); RBC Distribution Width 13.2 % (11.5-14.5); Red Blood Cell (RBC) Count 3.55 mill/uL (4.20-5.40)
[2024-03-28 06:16] LABS: ALT (SGPT) 25 U/L (8-55); AST (SGOT) 15 U/L (5-34); Albumin 2.9 g/dL (3.5-5.0); Alkaline Phosphatase 88 U/L (40-110); Anion Gap 13 mmol/L (10-20); BUN (Urea Nitrogen) 9 mg/dL (9.8-20.1); Bilirubin, Total 0.2 mg/dL (0.2-1.2); Calc. Creatinine Clearance 117 mL/min (70-130); Carbon Dioxide 25 mmol/L (22-29); Chloride 109 mmol/L (98-107); Estimated GFR 93; Globulin 3.1 g/dL (2.4-3.5); Glucose 94 mg/dL (70-105); Potassium 3.6 mmol/L (3.5-5.1); Sodium 143 mmol/L (136-145)
[2024-03-28 06:28] LABS: Band 1 % (5-11); Eosinophils 8 % (0-10); Large Platelets 6.1 % (0-5); Lymphocytes 31 % (21-51); Metamyelocyte 1 % (0-0); Monocytes 11 % (0-10); Myelocyte 1 % (0-0); Neutrophil 42 % (42-75); Platelet Adequacy Comment Platelets Increased; Reactive Lymphocytes 4 % (0-10); Smudge Cells 19.3 %
[2024-03-28 09:53] VITALS: TEMP 98.4
[2024-03-28] MEDS: Ertapenem 1 GM in Sodium Chloride 0.9% 100 ML IVPB SCH (10:21)
[2024-03-28 13:21] VITALS: BP 161/93
== END 2024-03-28 14:16 | disposition home or self-care (01) | DRG 872 ==
LOC: ERS 16:03 → 2SW 19:05 → OBSVTOIN 03-24 09:09
PROVIDERS: ADMIT Family Medicine; ATTEND Family Medicine
PROC: 02HV33Z Insertion of Infusion Device into Superior Vena Cava, Percutaneous Approach (ICD-10-PCS; principal; 2024-03-27)
PROC: B518ZZA Fluoroscopy of Superior Vena Cava, Guidance (ICD-10-PCS; 2024-03-27)
PROC: B548ZZA Ultrasonography of Superior Vena Cava, Guidance (ICD-10-PCS; 2024-03-27)
DX: A41.51 Sepsis due to Escherichia coli [E. coli] (principal); N12 Tubulo-interstitial nephritis, not specified as acute or chronic; E87.1 Hypo-osmolality and hyponatremia; E89.0 Postprocedural hypothyroidism; J45.909 Unspecified asthma, uncomplicated; F32.9 Major depressive disorder, single episode, unspecified; F41.9 Anxiety disorder, unspecified; G47.00 Insomnia, unspecified; K21.9 Gastro-esophageal reflux disease without esophagitis; Z90.81 Acquired absence of spleen; Z85.3 Personal history of malignant neoplasm of breast; Z88.8 Allergy status to other drugs, medicaments and biological substances; Z90.722 Acquired absence of ovaries, bilateral; Z90.49 Acquired absence of other specified parts of digestive tract
CPT/HCPCS: 36415; 36569; 71045; 76937; 77001; 80053; 80202; 80306; 80307; 81001; 82550; 83605; 84145; 85025; 87040; 87077; 87086; 87149; 87186; 93005; 96365; 96375; C1751; J0696; J1335; J1650; J1885; J2185; J3370; J3370-JW; J3490; J7120

== ENCOUNTER 2024-06-04 12:30 | Outpatient (CLI) | payer BC ==
[2024-06-04] MEDS ORDERED: Barium Sulfate 96% 176 GM BOT (xray ONLY) ONE (12:58)
[2024-06-04] MEDS ORDERED: E-Z-HD 98% W/W 340GM BOT (x-ray ONLY) ONE (12:58)
== END 2024-06-04 12:31 | disposition home or self-care (01) ==
LOC: RAD 12:30
PROVIDERS: ATTEND Internal Medicine Gastroenterology
DX: K21.9 Gastro-esophageal reflux disease without esophagitis (principal); R13.10 Dysphagia, unspecified
CPT/HCPCS: 74220

== ENCOUNTER 2024-10-21 12:17 | Outpatient (CLI) | payer BC | END 2024-10-21 12:18 | disposition home or self-care (01) | LOC: ULT 12:17 | PROVIDERS: ATTEND Specialist | DX: E04.2 Nontoxic multinodular goiter (principal); E89.0 Postprocedural hypothyroidism | CPT/HCPCS: 76536 ==